=== PATIENT | female | born 1955 | race Two or more races ===

== ENCOUNTER 2018-10-30 11:29 | Outpatient (CLI) | payer OTHER | END 2018-10-30 14:24 | disposition home or self-care (01) | LOC: MRI 11:29 | DX: M25.561 Pain in right knee (principal) | CPT/HCPCS: 73721 ==

== ENCOUNTER 2019-02-24 05:00 | Day surgery (SDC) | payer OTHER ==
[~2019-02-24 05:00] MED LIST: CLONAZEPAM2 MG PO; REMERON30 MG PO; SYNTHROID50 MCG PO
[2019-02-24] MEDS ORDERED: TRAM1TAB98 PO (12:23)
[2019-02-24] MEDS ORDERED: Septra Ds Tablet PO (12:23)
== END 2019-02-24 15:05 | disposition home or self-care (01) ==
LOC: CIR.AMB 05:00
DX: M23.321 Other meniscus derangements, posterior horn of medial meniscus, right knee (principal); M65.861 Other synovitis and tenosynovitis, right lower leg

== ENCOUNTER → 2019-08-01 | Outpatient (CLI) | payer OTHER ==
[~2019-08-01] MED LIST changes: +Septra Ds Tablet PO; +TRAM1TAB98 PO
== END | disposition home or self-care (01) ==
LOC: TOM 13:09
DX: R13.19 Other dysphagia (principal)

== ENCOUNTER 2020-02-10 12:31 | Outpatient (CLI) | payer OTHER ==
[~2020-02-10 12:31] MED LIST changes: +FIORICET TABLET1 TAB; +PROZAC20 MG
== END 2020-02-10 12:37 | disposition home or self-care (01) ==
LOC: MAMO-SONO 12:31
PROVIDERS: ATTEND Obstetrics & Gynecology
DX: Z12.31 Encounter for screening mammogram for malignant neoplasm of breast (principal); Z87.898 Personal history of other specified conditions; N60.11 Diffuse cystic mastopathy of right breast

== ENCOUNTER 2021-05-31 12:30 | Outpatient (CLI) | payer OTHER | END 2021-05-31 12:41 | disposition home or self-care (01) | LOC: MAMO-SONO 12:30 | PROVIDERS: ATTEND Internal Medicine Cardiovascular Disease | DX: R92.0 Mammographic microcalcification found on diagnostic imaging of breast (principal); N64.89 Other specified disorders of breast; Z12.31 Encounter for screening mammogram for malignant neoplasm of breast ==

== ENCOUNTER 2021-05-31 14:31 | Outpatient (CLI) | payer OTHER | END 2021-05-31 14:38 | disposition home or self-care (01) | LOC: NUCLEAR 14:31 | PROVIDERS: ATTEND Internal Medicine Cardiovascular Disease | DX: M81.0 Age-related osteoporosis without current pathological fracture (principal); E55.9 Vitamin D deficiency, unspecified ==

== ENCOUNTER 2022-05-05 10:20 | Outpatient (CLI) | payer OTHER | END 2022-05-05 10:27 | disposition home or self-care (01) | LOC: RAD 10:20 | DX: M54.2 Cervicalgia (principal); M54.6 Pain in thoracic spine; M54.50 Low back pain, unspecified ==

== ENCOUNTER 2022-06-01 10:30 | Outpatient (CLI) | payer OTHER | END 2022-06-01 11:03 | disposition home or self-care (01) | LOC: MAMO-SONO 10:30 | PROVIDERS: ATTEND Obstetrics & Gynecology | DX: Z12.31 Encounter for screening mammogram for malignant neoplasm of breast (principal); N64.4 Mastodynia; Z01.419 Encounter for gynecological examination (general) (routine) without abnormal findings ==

== ENCOUNTER 2024-06-04 10:17 | Outpatient (CLI) | payer OTHER | END 2024-06-04 10:36 | disposition home or self-care (01) | LOC: TOM 10:17 | PROVIDERS: ATTEND Internal Medicine Cardiovascular Disease | DX: R10.9 Unspecified abdominal pain (principal) ==

== ENCOUNTER 2024-09-29 10:55 | Outpatient (CLI) | payer OTHER | END 2024-09-29 10:59 | disposition home or self-care (01) | LOC: RAD 10:55 | PROVIDERS: ATTEND Internal Medicine Cardiovascular Disease | DX: J44.9 Chronic obstructive pulmonary disease, unspecified (principal) ==

== ENCOUNTER 2024-12-23 07:52 | Outpatient (CLI) | payer OTHER | END 2024-12-23 07:55 | disposition home or self-care (01) | LOC: SONOGRAMA 07:52 | PROVIDERS: ATTEND Internal Medicine Cardiovascular Disease | DX: E03.9 Hypothyroidism, unspecified (principal) ==